=== PATIENT | male | born 1985 | race Hispanic/Latino ===

== ENCOUNTER 2024-02-10 16:23 | Outpatient (RCR) | payer OTHER, SELFPAY | END 2024-02-24 10:23 | disposition home or self-care (01) | LOC: ROT 16:23 | PROVIDERS: ATTENDING PHYSICIAN Nurse Practitioner | DX: S62.002D Unspecified fracture of navicular [scaphoid] bone of left wrist, subsequent encounter for fracture with routine healing (principal); Z73.6 Limitation of activities due to disability | CPT/HCPCS: 97010; 97110; 97166; 97535 ==

== ENCOUNTER → 2024-02-24 14:58 | Outpatient (REF) | payer OTHER, SELFPAY | LOC: RAD 14:58 | PROVIDERS: ATTENDING PHYSICIAN Nurse Practitioner | DX: S62.002A Unspecified fracture of navicular [scaphoid] bone of left wrist, initial encounter for closed fracture (principal) | CPT/HCPCS: 73200 ==

== ENCOUNTER 2024-03-20 03:57 | Emergency (ER) | payer OTHER, SELFPAY ==
[2024-03-20 03:59] VITALS: BP 114/79
--- NOTE | 2024-03-20 04:18 | EDRN ---
Pt says he was sleeping and was woken up to be handcuffed and his R hand got caught in tray door of cell causing laceration to R middle finger. Pt also sustained abrasions to L 5th, 4th and 3rd fingers. These abrasions were cleaned with sterile
water. Pt has handcuffs in place - abrasions noted to wrists. Pt complains of pain L wrist.
--- NOTE | 2024-03-20 07:16 | ED.GENMED ---
History of Present Illness
<Ravindra Valencia MD - Last Filed: 03/20/24 09:04>
General
Chief Complaint: Skin Surface Trauma
Source: patient
Exam Limitations: none
Time Seen by Provider: 03/20/24 05:59
Nursing documentation reviewed up to this point in time: agreed with
Travel History
Have you had any contact with someone who has COVID-19?: No
Do you have any symptoms of coronavirus? Fever > 100 degrees, chills, cough, shortness of breath, sore throat, loss of taste or smell, muscle aches, or headache?: No
History of Present Illness
History of Present Illness:
Patient presents to ED from [facility], after accidental laceration of his right hand, which is cut on the food tray, as his cuff was being removed. Denies any other injury. Patient states that he did receive tetanus
vaccination 3 years ago.
Past History
<Ravindra Valencia MD - Last Filed: 03/20/24 09:04>
Past History
ED Past Medical History: Psychiatric (Depression) and Other (autism, Aspergers syndrome. )
ED Past Surgical History: None
Social History
Tobacco: Smoker
Alcohol: Occasional
Drug: Marijuana, Cocaine and Other (Fentanyl)
Personal: Single
Living: homeless
Employment: Employed
Family History
Family History: Other (Noncontributory)
Review of Systems
<Ravindra Valencia MD - Last Filed: 03/20/24 09:04>
Review of Systems
Allergies reviewed?: Yes
All Other Systems: ROS reviewed and negative except as documented in HPI and ROS
Constitutional: Reports no symptoms
Musculoskeletal: Reports no symptoms
Skin: Reports other (Hand laceration)
Neurological: Reports no symptoms; Denies weakness or numbness
Phy Exam
<Ravindra Valencia MD - Last Filed: 03/20/24 09:04>
Physical Exam
Physical Exam:
Physical Exam
General: no apparent distress, not acutely ill. afebrile
Head: nc/at. eomi
Neck: supple. normal range of motion.
Neuro: alert and oriented. no focal neurological deficits
Skin: an approx 3cm, U-shaped superficial laceration over dorsal aspect of right finger third PIP, without active bleeding.
Psychiatric: well kept. interactive and cooperative
Extremities: no edema. no calf tenderness.
Course
<Ravindra Valencia MD - Last Filed: 03/20/24 09:04>
Orders/Labs/Results
Orders:
Orders
03/20/24 07:16
Acetaminophen [Tylenol] 650 mg PO NOW STA
03/20/24 07:31
CR Wrist - Left Min 3 Views Urgent
Comment:
Reason For Exam: pain, swelling
Vital Signs
Initial and Last Documented VS:
Initial Vital Signs
Temp Pulse Resp BP Pulse Ox
97.9 F 71 18 114/79 100
03/20/24 03:59 03/20/24 03:59 03/20/24 03:59 03/20/24 03:59 03/20/24 03:59
Last Documented Vital Signs
Temp Pulse Resp BP Pulse Ox
97.9 F 74 18 118/72 97
03/20/24 03:59 03/20/24 07:20 03/20/24 07:20 03/20/24 07:20 03/20/24 07:20
<Gilmar Cerrato PA-C - Last Filed: 03/21/24 09:40>
Orders/Labs/Results
Orders:
Orders
03/20/24 07:16
Acetaminophen [Tylenol] 650 mg PO NOW STA
03/20/24 07:31
CR Wrist - Left Min 3 Views Urgent
Comment:
Reason For Exam: pain, swelling
Vital Signs
Initial and Last Documented VS:
Initial Vital Signs
Temp Pulse Resp BP Pulse Ox
97.9 F 71 18 114/79 100
03/20/24 03:59 03/20/24 03:59 03/20/24 03:59 03/20/24 03:59 03/20/24 03:59
Last Documented Vital Signs
Temp Pulse Resp BP Pulse Ox
97.9 F 74 18 118/72 97
03/20/24 03:59 03/20/24 07:20 03/20/24 07:20 03/20/24 07:20 03/20/24 07:20
Procedures
<Gilmar Crerato PA-C - Last Filed: 03/21/24 09:40>
Laceration Closure
Right Proximal Dorsal Third Finger:
Status of Wound: clean
Description of Wound Edges: sharp and flap-well vascularized
Preparation: cleaned with saline
Anesthesia: 1% Lidocaine
Revision/Debridement: routine- no revision
Wound exploration: explored to base- no FB and no tendon involvement
Type of Closure: single layer closure and interrupted sutures
Skin Closure Material: 5-0 prolene
Number of sutures: 5
<Ravindra Valencia MD - Last Filed: 03/20/24 09:04>
MDM/Problems Addressed
MDM/Problems Addressed:
Wound well approximated after suture replacement. Will require removal in 7-10 days
X-ray report reviewed and discussed with RN @ [facility] who informs me that patient's already identified scaphoid fracture, has been evaluated by orthopedic surgeon in January 2024. Patient unfortunate has not had any follow-up since then,
although CT scan was recommended during that visit. Informed her informing staff that x-ray today revealed likely distal radius buckle fracture, which will also need to be addressed during his next follow-up appointment with an orthopedic surgeon.
Athletics Teacher at [facility] to be notified of these findings.
<Gilmar Cerrato PA-C - Last Filed: 03/21/24 09:40>
*Critical Care Note
Total Time (30-74mins, 75-104mins- exclusive of procedures): Not Applicable
ED Attending Note
<Ravindra Valencia MD - Last Filed: 03/20/24 09:04>
-
Portions of this chart may have been created with voice recognition software.� Occasional wrong word or��sound alike� substitutions may have occurred due to the inherent limitations of voice recognition software.
Discharge Plan
Departure
Patient Disposition: Usp
Date of Disposition: 03/20/24
Time of Disposition: 08:05
Patient with high blood pressure during this ER visit?: No
Condition: Good
Discharge Problem:
Hand laceration
Instructions: Laceration Repair With Stitches (DC)
Referrals:
[facility] [Family Provider] -
Activity Restrictions/Additional Instructions:
As discussed, you are being discharged back to [facility] for continual evaluation and treatment. Your sutures will need to be removed within 7 to 10 days.
Interventions
Interventions:
*Risk Screen - Suicide Last Done: 03/20/24 04:25
*General Assessment Last Done: 03/20/24 04:25
*Neglect/Abuse Screening Last Done: 03/20/24 04:17
ED- Fall Risk Assessment Last Done: 03/20/24 08:20
*ED COVID-19 Vaccine History Last Done: 03/20/24 04:17
*Nursing Disposition Last Done: 03/20/24 08:20
ED-Skin Assessment Last Done: 03/20/24 04:25
Discharge Date and Time
Discharge Date/Time: 03/20/24 08:20
Print Language: THAI
[2024-03-20 07:20] VITALS: BP 118/72
[2024-03-20] MEDS: TYLENOL 650 MG PO (08:08)
== END 2024-03-20 08:20 ==
LOC: EMR 03:57
PROVIDERS: EMERGENCY PHYSICIAN Emergency Medicine
DX: S61.213A Laceration without foreign body of left middle finger without damage to nail, initial encounter (principal); S60.812A Abrasion of left wrist, initial encounter; S60.811A Abrasion of right wrist, initial encounter; S60.413A Abrasion of left middle finger, initial encounter; S60.415A Abrasion of left ring finger, initial encounter; S60.417A Abrasion of left little finger, initial encounter; W45.8XXA Other foreign body or object entering through skin, initial encounter; M79.89 Other specified soft tissue disorders; Y92.149 Unspecified place in prison as the place of occurrence of the external cause; F32.A Depression, unspecified; F84.5 Asperger's syndrome; F11.11 Opioid abuse, in remission; Z59.00 Homelessness unspecified; F17.200 Nicotine dependence, unspecified, uncomplicated
CPT/HCPCS: 12042; 99283; 73110

== ENCOUNTER 2024-10-28 09:53 | Emergency (ER) | payer OTHER, SELFPAY ==
[2024-10-28 10:05] VITALS: BP 133/96
--- NOTE | 2024-10-28 10:54 | ED.GENMED ---
History of Present Illness
General
Chief Complaint: Prescription Refill
Source: patient
Time Seen by Provider: 10/28/24 10:30
History of Present Illness
History of Present Illness:
39-year-old male with past medical history of autism, depression and previous substance abuse, recently released from [facility] presenting to the emergency department stating that he went to go get his prescriptions filled
at the local [facility] pharmacy however none of his scripts were able to be filled as these prescriptions were not signed. Patient has no physical concerns at this time.
Past History
Past History
ED Past Medical History: Psychiatric (Depression) and Other (autism, Aspergers syndrome. )
ED Past Surgical History: None
Social History
Tobacco: Smoker
Alcohol: Occasional
Drug: Marijuana, Cocaine and Other (Fentanyl)
Personal: Single
Living: with family
Employment: Employed
Family History
Family History: Other (Noncontributory)
Review of Systems
Review of Systems
All Other Systems: ROS reviewed and negative except as documented in HPI and ROS
Phy Exam
Physical Exam
Physical Exam:
GENERAL: Alert , in no apparent distress
EYE: conjunctiva clear
Head: Normocephalic atraumatic
NECK: Supple,
ENT: mmm.
LUNGS: no acute respiratory distress
NEUROLOGICAL: Alert and oriented
SKIN: Warm and dry, skin intact.
MUSCULOSKELETAL: well perfused.
PSYCH: Normal and appropriate interaction.
Scores
Heart Failure Risk
Heart Failure Risk Score: Not Applicable
Heart Score for Chest Pain Patients
STEMI patient?: Not applicable
Withdrawal Assessment of Alcohol
Withdrawal Assessment Completed?: Not applicable
Course
Vital Signs
Initial and Last Documented VS:
Initial Vital Signs
Temp Pulse Resp BP Pulse Ox
98.3 F 87 18 133/96 98
10/28/24 10:05 10/28/24 10:05 10/28/24 10:05 10/28/24 10:05 10/28/24 10:05
Last Documented Vital Signs
Temp Pulse Resp BP Pulse Ox
98.3 F 87 18 133/96 98
10/28/24 10:05 10/28/24 10:05 10/28/24 10:05 10/28/24 10:05 10/28/24 10:05
MDM/Problems Addressed
MDM/Problems Addressed:
39 year old male presenting to the ER for evaluation after attempting to have multiple prescriptions filled at the local pharmacy however due to the scripts being unsigned presented here to the ER. I contacted [facility] who
is aware of the patient and I noted to them that patient had the prescription with him. They will contact the patient's pharmacy and ensure that all scripts are sent and able to be picked up. I notified the patient about this plan and they are
happy and stable for discharge home.
*Pulse Oximetry
Patient hypoxic: no
*Critical Care Note
Total Time (30-74mins, 75-104mins- exclusive of procedures): Not Applicable
ED Attending Note
-
Portions of this chart may have been created with voice recognition software.� Occasional wrong word or��sound alike� substitutions may have occurred due to the inherent limitations of voice recognition software.
Discharge Plan
Departure
Patient Disposition: Home (Routine Discharge)
Date of Disposition: 10/28/24
Time of Disposition: 10:54
Patient with high blood pressure during this ER visit?: Yes
Discharge Problem:
Prescription refill
Referrals:
UNKNOWN - PT DOES,NOT KNOW [Family Provider] -
Interventions
Interventions:
*Risk Screen - Suicide Last Done: 10/28/24 09:54
*General Assessment Last Done: 10/28/24 09:54
*Neglect/Abuse Screening Last Done: 10/28/24 09:54
*ED COVID-19 Vaccine History Last Done: 10/28/24 10:05
*Nursing Disposition Last Done: 10/28/24 10:57
Discharge Date and Time
Discharge Date/Time: 10/28/24 10:57
Print Language: CHILEAN
== END 2024-10-28 10:57 | disposition home or self-care (01) ==
LOC: EMR 09:53
PROVIDERS: EMERGENCY PHYSICIAN Emergency Medicine
DX: Z76.0 Encounter for issue of repeat prescription (principal); F84.5 Asperger's syndrome; F17.200 Nicotine dependence, unspecified, uncomplicated
CPT/HCPCS: 99282

== ENCOUNTER 2024-10-29 19:53 | Emergency (ER) | payer MEDICAID, SELFPAY ==
[2024-10-29 19:59] VITALS: BP 140/87
--- NOTE | 2024-10-29 20:59 | ED.GENMED ---
History of Present Illness
General
Chief Complaint: Crisis Evaluation
Source: patient
Time Seen by Provider: 10/29/24 20:37
History of Present Illness
History of Present Illness:
This patient is a 39-year-old male who says that he was discharged from assisted on Friday. He has some trouble getting his medications filled. He is currently without a permanent home and has been staying in a [facility] longterm. He states that
they do not have the longterm open tonight. About a few hours ago, he started to feel suicidal described as wanting to throw himself in front of a train. He also notes he is suffering from 'stress-induced anxiety. He denies ingestions, chest pain,
shortness of breath, abdominal pain, nausea, vomiting, or other complaints.
Past History
Past History
ED Past Medical History: Psychiatric (Depression) and Other (autism, Aspergers syndrome. )
ED Past Surgical History: None
Social History
Tobacco: Smoker
Alcohol: Occasional
Drug: Marijuana, Cocaine and Other (Fentanyl)
Personal: Single
Living: homeless
Employment: Employed
Family History
Family History: Other (Noncontributory)
Phy Exam
Physical Exam
Physical Exam:
GENERAL: Alert , in no apparent distress
EYE: pupils equal and reactive
NECK: Supple, no significant adenopathy.
ENT: o/p clr, mmm.
CARDIAC: Regular rate and rhythm .
LUNGS: Clear breath sounds bilaterally, no acute respiratory distress, no wheezes/rales/rhonchi
ABDOMEN: Soft, without focal tenderness, no r/g, no cvat
NEUROLOGICAL: Alert and oriented, no focal neuro deficits
SKIN: Warm and dry, skin intact.
MUSCULOSKELETAL: No edema, well perfused.
PSYCH: Normal and appropriate interaction.
Course
Orders/Labs/Results
Orders:
Orders
10/29/24 19:58
1:1 Observation - Suicide/ Violent Behavior As Directed
10/29/24 21:01
PSYCHIATRY CONSULT Routine
Consulting Provider: Lazaro Bain
Was physician already notified: Yes
Crisis Consult Routine
Reason for Consult: SI
10/29/24 22:35
Clonazepam [Klonopin] 0.5 mg .ROUTE .STK-MED ONE
10/29/24 22:39
Clonazepam [Klonopin] 0.5 mg PO NOW STA
10/29/24 22:46
Alcohol Urgent
Basic Metabolic Panel Urgent
Complete Blood Count/With Diff Urgent
Urine Drug Abuse Screen Urgent
Date Specimen was Collected: 10/29/24
Time Specimen was Collected: 22:47
Vital Signs
Initial and Last Documented VS:
Initial Vital Signs
Temp Pulse Resp BP Pulse Ox
97.6 F 101 18 140/87 99
10/29/24 19:59 10/29/24 19:59 10/29/24 19:59 10/29/24 19:59 10/29/24 19:59
Last Documented Vital Signs
Temp Pulse Resp BP Pulse Ox
97.6 F 81 16 120/79 98
10/29/24 19:59 10/29/24 21:55 10/29/24 21:55 10/29/24 21:55 10/29/24 21:55
Update Note
Update Note:
Patient presents to the Emergency Department with SI
Number and Complexity of Problems Addressed at the Encounter
� Chronic conditions affecting care:
� Acute Exacerbation and/or Progression of Chronic Illness:
� Differential Diagnosis includes: But not limited to depression, anxiety, etc.
Amount and/or Complexity of Data to be Reviewed and Analyzed
� I performed an independent evaluation of and my interpretation is:
EKG:
CT:
Xrays:
Laboratory Studies:
Other:
� Review of other/old records reveals:
� Clinical information was obtained by an independent historian:
� Prescriptions/Medications Considered but not given:
� Further testing considered but not performed:
Risk of Complications and/or Morbidity or Mortality of Patient Management
� Social determinants of health affecting care:
� Discussion with other providers (PCP, Hospitalists, Consultants, etc):
9:00 PM consult placed for both telepsych and crisis. Patient stable with a one-to-one in place.
Case discussed with crisis, patient is a voluntary commitment to inpatient care they are currently looking for an accepting facility.
ED Attending Note
-
Portions of this chart may have been created with voice recognition software.� Occasional wrong word or��sound alike� substitutions may have occurred due to the inherent limitations of voice recognition software.
Discharge Plan
Departure
Patient Disposition: Psych Facility
Date of Disposition: 10/29/24
Time of Disposition: 22:51
Patient with high blood pressure during this ER visit?: Yes
Discharge Problem:
Depression with suicidal ideation
Referrals:
NONE,* [Family Provider] -
Interventions
Interventions:
*Risk Screen - Suicide Last Done: 10/29/24 19:55
*General Assessment Last Done: 10/29/24 19:59
*Neglect/Abuse Screening Last Done: 10/29/24 19:59
ED-Psychological Assessment Last Done: 10/29/24 21:56
Discharge Date and Time
Print Language: GREEK
[2024-10-29 21:55] VITALS: BP 120/79
[2024-10-29] MEDS: KLONOPIN 0.5 MG PO (22:39)
[2024-10-29 23:08] LABS: % Basophils 1.1 % (0-2); % Eosinophils 2.9 % (0-6); % Immature Granulocytes 0.3 % (0-0.5); % Monocytes 6.5 % (1.7-9.3); % Neutrophils 64.2 % (42.2-75.2); Absolute Basophils 0.1 10^3/uL (0-0.2); Absolute Eosinophils 0.2 10^3/uL (0-0.7); Absolute Lymphocytes 1.5 10^3/uL (1.2-3.4); Absolute Monocytes 0.4 10^3/uL (0.1-0.6); Hematocrit 34.7 % (39.0-52.0); Hemoglobin 11.7 g/dL (13.0-18.0); Mean Corp Hgb Conc. 33.7 g/dL (33.0-37.0); Mean Corpuscular Hgb 29.3 pg (27.0-31.0); Mean Platelet Volume 9.2 fL (7.4-10.4); Nucleated Red Blood Cells % 0 % (-); Platelet Count 240 10^3/uL (130-400); Red Blood Cell Count 3.99 10^6/uL (4.70-6.10); White Blood Cell Count 6.2 10^3/uL (4.8-10.8)
[2024-10-29 23:18] LABS: Amphetamines Negative (Negative); Barbiturates Negative (Negative); Benzodiazepines Negative (Negative); Buprenorphine Positive (Negative); Cocaine Negative (Negative); Marijuana Negative (Negative); Methadone Negative (Negative); Methamphetamines Negative (Negative); Opiates Negative (Negative); Phencyclidine Negative (Negative); Tricyclic Antidepressants Negative (Negative)
[2024-10-29 23:23] LABS: Blood Urea Nitrogen 17 mg/dl (9-20); Calcium 9.3 mg/dl (8.4-10.2); Carbon Dioxide 28 mmol/L (22-30); Chloride 101 mmol/L (98-107); Glucose 126 mg/dl (70-99); Potassium 4.4 mmol/L (3.5-5.1); Sodium 136 mmol/L (135-145); eGFR > 60.00
[2024-10-29 23:42] LABS: Fentanyl, Urine Negative (Negative)
[2024-10-29 23:56] LABS: Alcohol None Detected
[2024-10-30 03:45] VITALS: BP 119/76
[2024-10-30] MEDS: MAALOX 30 ML PO (03:52)
[2024-10-30] MEDS: ZOFRAN ODT (ORALLY DISINTEGRATING) 4 MG PO (06:30)
[2024-10-30 06:33] VITALS: BP 119/88
[2024-10-30 07:54] VITALS: BMI 25.9
[2024-10-30 10:03] VITALS: BP 126/85
== END 2024-10-30 11:37 ==
LOC: EMR 19:53
PROVIDERS: CONSULT PHYSICIAN Psychiatry & Neurology Psychiatry; EMERGENCY PHYSICIAN Emergency Medicine
DX: R45.851 Suicidal ideations (principal); R11.10 Vomiting, unspecified; Z59.01 Sheltered homelessness; F32.A Depression, unspecified; F84.5 Asperger's syndrome; F17.200 Nicotine dependence, unspecified, uncomplicated; F41.9 Anxiety disorder, unspecified; R03.0 Elevated blood-pressure reading, without diagnosis of hypertension; Z88.2 Allergy status to sulfonamides; Z88.8 Allergy status to other drugs, medicaments and biological substances; Z91.048 Other nonmedicinal substance allergy status
CPT/HCPCS: 99285; 80048; 80306; 80307; 82077; 85025